=== PATIENT | male | born 1965 | race Caucasian/White ===

== ENCOUNTER 2018-11-05 09:03 | Day surgery (SDC) | payer OTHER ==
--- NOTE | 2018-11-05 08:18 | PDHPUP ---
History & Physical Update H&P update statement: This history and physical update is based on an assessment of the patient which was completed after admission or registration (within 24 hours), but prior to the surgery/procedure. H&P update: H&P reviewed & patient examined, no change in patient's condition since H&P completed
[2018-11-05] MEDS ORDERED: LR 1,000 ML IV ONE (09:26)
[2018-11-05] MEDS ORDERED: BUPIVACAINE/EPI 0.5% 30 ML SDV ONE (09:47)
[2018-11-05] MEDS ORDERED: MIDAZOLAM 2 MG/2 ML VIAL IVP ONE (10:05)
--- NOTE | 2018-11-05 10:05 | PDANEPAE ---
ANE History of Present Illness Hemorrhoids ANE Past Medical History - Cardiovascular History Hx Hypertension: No Hx Arrhythmias: No Hx Chest Pain: No Hx Coronary Artery / Peripheral Vascular Disease: No Hx CHF / Valvular Disease: No Hx Palpitations: No - Pulmonary History Hx COPD: No Hx Asthma/Reactive Airway Disease: No Hx Recent Upper Respiratory Infection: No Hx Oxygen in Use at Home: No Hx Sleep Apnea: No Sleep Apnea Screening Result - Last Documented: Negative - Neurologic History Hx Cerebrovascular Accident: No Hx Seizures: No Hx Dementia: No - Endocrine History Hx Diabetes: No - Renal History Hx Renal Disorders: No - Liver History Hx Hepatic Disorders: No - Neurological & Psychiatric Hx Hx Neurological and Psychiatric Disorders: No - Cancer History Hx Cancer: No - Congenital Disorder History Hx Congenital Disorders: No - GI History Hx Gastrointestinal Disorders: No - Other Health History Other Health History: none - Chronic Pain History Chronic Pain: No - Surgical History Prior Surgeries: none in last 5 yrs. colonoscopy 2016 ANE Review of Systems Review of Systems: - Exercise capacity METS (RN): 5 METS ANE Patient History - Allergies Allergies/Adverse Reactions: No Known Allergies Allergy (Verified 04/07/16 07:13) - Home Medications Home medications: home medication list seen and reviewed Home Medications: Trudy Allergy 04/07/16 [Last Taken 11/04/18] Multivitamin 11/04/18 [Last Taken 11/04/18] Mucinex 11/05/18 [Last Taken 11/04/18] - NPO status NPO Status: no food or drink >8 hours NPO Since - Liquids (Date): 11/05/18 NPO Since - Liquids (Time): 08:00 NPO Since - Solids (Date): 11/04/18 NPO Since - Solids (Time): 19:00 - Anes Hx Anes Hx: no prior problems - Smoking Hx Smoking Status: Never smoked - Family Anes Hx Family Hx Anesthesia Complications: none ANE Labs/Vital Signs - Vital Signs Blood Pressure: 106/70 Heart Rate: 48 Respiratory Rate: 18 O2 Sat (%): 99 Height: 185.42 cm Weight: 70.307 kg ANE Physical Exam - Airway Neck exam: FROM Mallampati Score: Class 2 Mouth exam: normal dental/mouth exam - Pulmonary Pulmonary: no respiratory distress - Cardiovascular Cardiovascular: regular rate and rhythym - ASA Status ASA Status: II ANE Anesthesia Plan Anesthesia Plan: GA w LMA
[2018-11-05] MEDS ORDERED: MIDAZOLAM 2 MG/2 ML VIAL ONE (10:06)
[2018-11-05] MEDS ORDERED: fentaNYL 100 MCG/2 ML INJ ONE (10:10)
[2018-11-05] MEDS ORDERED: PROPOFOL 200 MG/20 ML VIAL ONE ×2 (10:10→10:38)
[2018-11-05] MEDS ORDERED: cefOXitin SODIUM 2 GM in NS 100 ML IV ONE (10:30)
[2018-11-05] MEDS ORDERED: fentaNYL 100 MCG/2 ML INJ IVP PRN (10:31)
[2018-11-05] MEDS ORDERED: NALOXONE HCL 0.4 MG/ML INJ IVP PRN (10:31)
[2018-11-05] MEDS ORDERED: ONDANSETRON 4 MG/2 ML VIAL IVP PRN (10:31)
[2018-11-05] MEDS ORDERED: PROMETHAZINE HCL 25 MG/ML INJ IVP PRN (10:31)
[2018-11-05] MEDS ORDERED: HYDROmorphONE/DILAUDID 2 MG/ML INJ IVP PRN (10:31)
[2018-11-05] MEDS ORDERED: DEXAMETHASONE 4 MG/ML VIAL ONE (10:32)
--- NOTE | 2018-11-05 11:06 | POSTOPPROG ---
Post Op Note Date of Operation: 11/05/18 Surgeon: Anselmo Lamar Anesthesiologist: parish Anesthesia: GET(General Endotracheal) Pre-op Diagnosis: symptomatic hemorhoids Post-op Diagnosis: same Indication: bleeding and pain Procedure: EUA, external hemorhoidectomy, int hem bandingx2 Findings: grade 2 int hemorhoids, large external hemorhoids Inf/Abcess present in the surg proc area at time of surgery?: No Depth: Organ Space EBL: Minimal Complications: 0 Specimen(s): external hemorhoids
[2018-11-05 11:29] VITALS: BP 108/62
--- NOTE | 2018-11-05 11:36 | POSTANESTH ---
Post Anesthetic Evaluation Cardiovascular Status: Similar to Pre-Op Cond Respiratory Status: Similar to Pre-op Cond. Level of Consciousness/Mental Status: Alert and Oriented Pain Control: Adequate, Prn Tx Ordered Nausea/Vomiting Control: Adequate, Prn Tx Ordered Complications Possibly Related to Anesthesia: None Noted
--- NOTE | 2018-11-18 08:24 | GOP ---
[f rep st] OPERATIVE REPORT DATE OF OPERATION: 11/05/2018 SURGEON: Anselmo Lamar MD DIE DEVELOPER: None. ANESTHESIA: Dr. Vincent Lombardo PREOPERATIVE DIAGNOSIS: Symptomatic hemorrhoids. POSTOPERATIVE DIAGNOSIS: Symptomatic hemorrhoids. PROCEDURE PERFORMED: Exam under anesthesia with external hemorrhoidectomy and internal hemorrhoid ba nding x2. FINDINGS: The patient was found have a large swollen external hemorrhoids. He had some grade 2 inte rnal hemorrhoids. DESCRIPTION OF PROCEDURE: Patient was taken to the operating room where he received a satisfactory g eneral endotracheal anesthesia by Dr. Lombardo, placed in the lithotomy position, prepped and viki ped in usual sterile fashion. The anus was infiltrated after Marcaine and dilated gently to 3 finger breadths. External hemorrhoids were elevated up and excised. The wounds were closed with 4-0 chromi c sutures. Hemostasis was assured. The wounds were further infiltrated with 0.5% Marcaine. Interna lly, Rubber-band ligation was performed at the 5 o'clock and 7 o'clock positions for some grade 2 int ernal hemorrhoids. He tolerated the procedure well. Wounds were dressed. [facility] was [facility] to [facility] room in good condition. COMPLICATIONS: None. /[id number]/MODL
== END 2018-11-05 12:30 | disposition home or self-care (01) ==
LOC: FSGY 09:03
PROVIDERS: ATTEND Surgery
DX: K64.2 Third degree hemorrhoids (principal); K64.4 Residual hemorrhoidal skin tags
CPT/HCPCS: J0694; J1100; J2250; J2704; J3010